=== PATIENT | male | born 1945 | race Caucasian/White ===

== ENCOUNTER → 2017-02-11 | Outpatient (CLI) | payer OTHER | END | disposition home or self-care (01) | LOC: PCVCCLINIC 15:27 | PROVIDERS: ATTEND Internal Medicine Cardiovascular Disease | DX: I25.10 Atherosclerotic heart disease of native coronary artery without angina pectoris (principal); I10 Essential (primary) hypertension; E78.5 Hyperlipidemia, unspecified; I48.91 Unspecified atrial fibrillation; E11.9 Type 2 diabetes mellitus without complications; I77.9 Disorder of arteries and arterioles, unspecified; E78.1 Pure hyperglyceridemia; Z88.0 Allergy status to penicillin; Z79.84 Long term (current) use of oral hypoglycemic drugs; Z87.891 Personal history of nicotine dependence; Z79.899 Other long term (current) drug therapy | CPT/HCPCS: 80061; 93005; G0463 ==

== ENCOUNTER → 2017-09-15 | Outpatient (CLI) | payer OTHER | END | disposition home or self-care (01) | LOC: PCVCCLINIC 10:21 | DX: I25.10 Atherosclerotic heart disease of native coronary artery without angina pectoris (principal); I10 Essential (primary) hypertension; I48.91 Unspecified atrial fibrillation; E78.00 Pure hypercholesterolemia, unspecified; K21.9 Gastro-esophageal reflux disease without esophagitis; E11.9 Type 2 diabetes mellitus without complications; R07.89 Other chest pain; R94.31 Abnormal electrocardiogram [ECG] [EKG]; Z79.899 Other long term (current) drug therapy; Z79.84 Long term (current) use of oral hypoglycemic drugs | CPT/HCPCS: 80061; 93005; G0463 ==

== ENCOUNTER → 2017-10-12 | Outpatient (CLI) | payer OTHER | END | disposition home or self-care (01) | LOC: PCVCIMAG 09:51 | DX: R07.9 Chest pain, unspecified (principal); R06.00 Dyspnea, unspecified; I10 Essential (primary) hypertension; I48.91 Unspecified atrial fibrillation; E11.9 Type 2 diabetes mellitus without complications; I25.119 Atherosclerotic heart disease of native coronary artery with unspecified angina pectoris; Z95.5 Presence of coronary angioplasty implant and graft | CPT/HCPCS: 93325; 93351 ==

== ENCOUNTER → 2018-02-08 | Outpatient (CLI) | payer OTHER | END | disposition home or self-care (01) | LOC: PCVCCLINIC 15:53 | DX: I25.10 Atherosclerotic heart disease of native coronary artery without angina pectoris (principal); E78.00 Pure hypercholesterolemia, unspecified; I10 Essential (primary) hypertension; E11.9 Type 2 diabetes mellitus without complications; I48.91 Unspecified atrial fibrillation; I35.0 Nonrheumatic aortic (valve) stenosis; Z88.0 Allergy status to penicillin | CPT/HCPCS: 80061; 93005; G0463 ==

== ENCOUNTER → 2018-10-07 | Outpatient (CLI) | payer OTHER ==
--- NOTE | 2018-10-07 17:38 | PCVCIMAG ---
APPROVED REPORT Study performed: 10/07/2018 08:48:17 EXAM: Comprehensive 2D, Doppler, and color-flow Echocardiogram Patient Location: Echo lab Status: routine BSA: 2.20 HR: 88 bpmBP: 140/66 mmHg Rhythm: Atrial Fibrillation Other Information Study Quality: Adequate Indications Atrial Fibrillation CAD aortic stenosis 2D Dimensions IVSd: 13.72 (7-11mm)LVOT Diam: 21.64 (18-24mm) LVDd: 35.31 mm PWd: 13.89 (7-11mm)Ascending Ao: 34.78 (22-36mm) LVDs: 27.92 (25-40mm) Left Atrium: 54.54 (27-40mm) Aortic Root: 35.35 mm LV Single Plane 4CH: 56.29 % LV Single Plane 2CH: 51.74 % Biplane EF: 53.2 % Volumes Left Atrial Volume (Systole) Single Plane 4CH: 110.46 mLSingle Plane 2CH: 101.92 mL LA ESV Index: 50.00 mL/m2 Aortic Valve AoV Peak Lavelle.: 4.23 m/s AO Peak Gr.: 71.75 mmHgLVOT Max P.98 mmHg AO Mean Gr.: 42.48 mmHgLVOT Mean P.34 mmHg AO V2 Mean: 3.08 m/sLVOT Max V: 1.22 m/s AO V2 VTI: 86.96 cmLVOT Mean V: 0.87 m/s YOUSUF (VTI): 1.14 [id number] V1 VTI: 26.88 cm YOUSUF Vmax: 1.06 cm2 SV (LVOT): 98.80 mL Mitral Valve E/A Ratio: 0.8 MV Decel. Time: 287.64 ms MV E Max Lavelle.: 0.42 m/s MV A Lavelle.: 0.54 m/s IVRT: 103.81 ms Pulmonary Valve PV Peak Lavelle.: 1.22 m/sPV Peak Gr.: 5.97 mmHg Pulmonary Vein P Vein S: 0.35 m/sP Vein A: 0.28 m/s P Vein D: 0.42 m/sP Vein A Dur.: 176.5 msec P Vein S/D Ratio: 0.83 Tricuspid Valve TR Peak Lavelle.: 2.78 m/s TR Peak Gr.: 30.99 mmHg Left Ventricle The left ventricle is normal size. There is normal LV segmental wall motion. Mild to moderate concentric left ventricular hypertrophy. Left ventricular systolic function is normal. The left ventricular ejection fraction is within the normal range. LVEF is 55-60%. Grade I - abnormal relaxation pattern. Right Ventricle The right ventricle is normal size. The right ventricular systolic function is normal. Atria Left atrium is severely dilated. The right atrium size is normal. Aortic Valve The aortic valve is moderately to severely sclerotic. No aortic regurgitation is present. There is moderate to severe valvular aortic stenosis. Calculated aortic valve area is 1.1 cm2 with maximum pressure gradient of 72 mmHg and mean pressure gradient of 42 mmHg. Mitral Valve The mitral valve is normal in structure. There is no mitral valve regurgitation noted. No evidence of mitral valve stenosis. Tricuspid Valve The tricuspid valve is normal in structure. Mild tricuspid regurgitation with PAP of 38 mmHg. Pulmonic Valve The pulmonary valve is normal in structure. There is no pulmonic valvular regurgitation. Great Vessels The aortic root is normal in size. IVC is normal in size and collapses >50% with inspiration. Pericardium There is no pericardial effusion. There is no pleural effusion. <Conclusion> The left ventricle is normal size. Mild to moderate concentric left ventricular hypertrophy. LVEF is 55-60%. Grade I - abnormal relaxation pattern. The right ventricle is normal size. Left atrium is severely dilated. The aortic valve is moderately to severely sclerotic. There is moderate to severe valvular aortic stenosis. Calculated aortic valve area is 1.1 cm2 with maximum pressure gradient of 72 mmHg and mean pressure gradient of 42 mmHg. There is no mitral valve regurgitation noted. Mild tricuspid regurgitation with PAP of 38 mmHg. The aortic root is normal in size. There is no pericardial effusion.
== END | disposition home or self-care (01) ==
LOC: PCVCIMAG 08:59
PROVIDERS: ATTEND Internal Medicine Cardiovascular Disease
DX: I08.2 Rheumatic disorders of both aortic and tricuspid valves (principal); I48.91 Unspecified atrial fibrillation; I25.10 Atherosclerotic heart disease of native coronary artery without angina pectoris
CPT/HCPCS: 93306

== ENCOUNTER → 2018-10-10 | Outpatient (CLI) | payer OTHER ==
--- NOTE | 2018-10-10 17:07 | PCVCIMAG ---
EXAM: VENOUS DUPLEX RIGHT LOWER EXTREMITY INDICATION: Leg pain and swelling. FINDINGS: Right leg: No thrombus in the common femoral, main femoral, or popliteal veins. These veins are compressible with phasic flow. Calf veins are unremarkable where seen. IMPRESSION: No evidence of deep venous thrombosis in the right lower extremity as detailed above. LOC:[id number]
== END | disposition home or self-care (01) ==
LOC: PCVCIMAG 11:08
PROVIDERS: ATTEND Internal Medicine Cardiovascular Disease
DX: M79.605 Pain in left leg (principal); M25.471 Effusion, right ankle; M79.89 Other specified soft tissue disorders
CPT/HCPCS: 93971

== ENCOUNTER → 2019-05-12 | Outpatient (CLI) | payer OTHER | END | disposition home or self-care (01) | LOC: PCVCCLINIC 15:17 | PROVIDERS: ATTEND Internal Medicine Cardiovascular Disease | DX: I25.10 Atherosclerotic heart disease of native coronary artery without angina pectoris (principal); E78.00 Pure hypercholesterolemia, unspecified; I35.0 Nonrheumatic aortic (valve) stenosis; E11.9 Type 2 diabetes mellitus without complications; I73.9 Peripheral vascular disease, unspecified; I65.23 Occlusion and stenosis of bilateral carotid arteries; D68.59 Other primary thrombophilia; I48.0 Paroxysmal atrial fibrillation; Z88.0 Allergy status to penicillin | CPT/HCPCS: 36415; 80061; 93005; G0463 ==